=== PATIENT | female | born 1960 | race Caucasian/White ===

== ENCOUNTER 2020-04-22 09:34 | Outpatient (CLI) | payer OTHER ==
--- NOTE | 2020-04-28 16:57 | MMO ---
Bilateral MAMMO Bilat Screen [facility]. CLINICAL HISTORY: Patient is 59 years old and is seen for screening. VIEWS: The views performed were: bilateral craniocaudal with tomosynthesis and bilateral mediolateral oblique with tomosynthesis. FILMS COMPARED: The present examination has been compared to prior imaging studies performed at [facility] on 10/15/2013, 11/12/2014, 02/01/2017 and 04/25/2018. This study has been interpreted with the assistance of computer-aided detection. MAMMOGRAM FINDINGS: The breasts are almost entirely fat. There are no suspicious masses, suspicious calcifications, or new areas of architectural distortion. IMPRESSION: THERE IS NO MAMMOGRAPHIC EVIDENCE OF MALIGNANCY. A ROUTINE FOLLOW-UP MAMMOGRAM IN 1 YEAR IS RECOMMENDED. THE RESULTS OF THIS EXAM WERE SENT TO THE PATIENT. ACR BI-RADS Category 1 - Negative MAMMOGRAPHY NOTE: 1. A negative mammogram report should not delay a biopsy if a dominant of clinically suspicious mass is present. 2. Approximately 10% to 15% of breast cancers are not detected by mammography. 3. Adenosis and dense breasts may obscure an underlying neoplasm. Reported by: ALMA ROSA KELLER MD Electonically Signed: [id number]
== END 2020-04-22 09:35 | disposition home or self-care (01) ==
LOC: BICMAMMO 09:34
PROVIDERS: ATTEND Family Medicine
DX: Z12.31 Encounter for screening mammogram for malignant neoplasm of breast (principal)
CPT/HCPCS: 77063; 77067

== ENCOUNTER 2020-04-22 13:29 | Outpatient (CLI) | payer OTHER ==
--- NOTE | 2020-04-22 15:28 | ULT ---
ABDOMINAL AORTIC ANEURYSM: Date: 04/22/2020 INDICATION: History of abdominal aortic aneurysm. COMPARISON: None. FINDINGS: Proximal abdominal aorta measured 2.1 cm. Mid abdominal aorta measured 1.2 cm. Distal abdominal aorta measured 1.3 cm. Left common iliac measured 1.0 cm. Right common iliac measured 1.0 cm. IMPRESSION: No aneurysmal dilatation seen. POS: BH
== END 2020-04-22 13:30 | disposition home or self-care (01) ==
LOC: SCSULT 13:29
PROVIDERS: ATTEND Family Medicine
DX: I71.4 Abdominal aortic aneurysm, without rupture (principal)
CPT/HCPCS: 76706

== ENCOUNTER 2023-07-20 13:05 | Outpatient (CLI) | payer OTHER | END 2023-07-20 13:06 | disposition home or self-care (01) | LOC: BICMAMMO 13:05 | DX: Z12.31 Encounter for screening mammogram for malignant neoplasm of breast (principal) | CPT/HCPCS: 77063; 77067 ==